=== PATIENT | male | born 1985 | race African-American/Black ===

== ENCOUNTER 2021-01-20 09:28 | Emergency (ER) | payer OTHER ==
[~2021-01-20] VITALS: Ht 170.2 cm; Wt 72.6 kg
[2021-01-20] MEDS ORDERED: PERCOCET 10-321 EAC1 PO (10:11)
[2021-01-20 10:31] LABS: ANION GAP 9 mmol/L (7-16); BUN 13 mg/dL (7-18); CALCIUM 9.7 mg/dL (8.5-10.1); CHLORIDE 101 mmol/L (98-107); CO2 32 mmol/L (21-32); CREATININE 1.3 mg/dL (0.7-1.3); GLUCOSE 115 mg/dL (74-106); POTASSIUM 4.4 mmol/L (3.5-5.1); SODIUM 142 mmol/L (136-145)
[2021-01-20 10:35] LABS: HEMATOCRIT 45.3 % (42.0-52.0); HEMOGLOBIN 13.9 gm/dL (14.0-18.0); MCH 23.4 pg (26.0-34.0); MCHC 30.8 g/dL (28.0-37.0); MCV 76.1 fL (80.0-100.0); PLATELET COUNT 269 thou/uL (150-400); RBC 5.95 mil/uL (4.50-6.00); RDW 23.8 % (10.5-14.5)
[2021-01-20 10:37] LABS: ALBUMIN 4.3 g/dL (3.4-5.0); DIRECT BILIRUBIN < 0.1 mg/dL (<0.1-0.2); LIPASE 93 U/L (73-393); SGOT 23 U/L (15-37); SGPT 42 U/L (16-63); TOTAL BILIRUBIN 0.4 mg/dL (0.2-1.0); TOTAL PROTEIN 8.7 g/dL (6.4-8.2)
[2021-01-20 11:01] LABS: URINE BILIRUBIN NEGATIVE (Negative); URINE BLOOD NEGATIVE (Negative); URINE CLARITY CLEAR; URINE COLOR YELLOW; URINE GLUCOSE-RANDOM* NEGATIVE (Negative); URINE KETONES 3+ (Negative); URINE LEUKOCYTES-REFLEX NEGATIVE (Negative); URINE NITRITE-REFLEX NEGATIVE (Negative); URINE PROTEIN (DIPSTICK) TRACE (Negative); URINE SPECIFIC GRAVITY 1.015 (1.005-1.035); URINE UROBILINOGEN 0.2 E.U./dl (0.2-1.0)
[2021-01-20 11:04] LABS: ABSOLUTE NEUTROPHILS 11.5 thou/uL (1.4-8.2); ANISOCYTOSIS 3+; HYPOCHROMASIA 1+
[2021-01-20 11:05] LABS: MICROCYTES 1+; OVALOCYTES FEW
[2021-01-20 11:08] LABS: URINE REDUCING SUBSTANCE NEGATIVE
[2021-01-20] MEDS ORDERED: HYDROXYZINE HCL25 M2 PO (13:54)
[2021-01-20] MEDS ORDERED: DICYCLOMINE HCL20 MG PO (13:54)
[2021-01-20] MEDS ORDERED: ZOFRAN ODT4 MG PO (13:54)
[2021-01-20 14:03] VITALS: BP 116/60
== END 2021-01-20 14:03 | disposition home or self-care (01) ==
LOC: ER 09:28
PROVIDERS: Emergency Medicine
DX: F11.23 Opioid dependence with withdrawal (principal); R10.9 Unspecified abdominal pain; R11.2 Nausea with vomiting, unspecified; R19.7 Diarrhea, unspecified; Z79.899 Other long term (current) drug therapy